=== PATIENT | female | born 1980 | race Caucasian/White ===

== ENCOUNTER 2020-12-20 01:55 | Inpatient (IN) | payer OTHER ==
[~2020-12-20] VITALS: Ht 152.4 cm; Wt 68.0 kg
[~2020-12-20 01:55] MED LIST: CYCLOBENZAPRINE5 MG PO; MOBIC15 MG PO
[2020-12-20 02:43] LABS: RED BLOOD COUNT 5.03 M/UL (4.00-5.10); WHITE BLOOD COUNT 8.6 K/UL (4.5-11.0)
[2020-12-20 03:12] LABS: BUN/CREATININE RATIO 11 (0-10)
--- NOTE | 2020-12-20 09:39 | NUR ---
STATES OK FOR PT TO COME OFF TELEMETRY MONITORING FOR MRI
--- NOTE | 2020-12-20 14:39 | NUR ---
MD ON FLOOR AND REQUEST NEW ORDERS BE PLACED
[2020-12-21 03:39] LABS: RED BLOOD COUNT 4.73 M/UL (4.00-5.10); WHITE BLOOD COUNT 8.2 K/UL (4.5-11.0)
[2020-12-21 04:04] LABS: BUN/CREATININE RATIO 17 (0-10)
[2020-12-21] MEDS ORDERED: PREDNISONE 20 M20 MG PO ×2 (09:02→09:46)
[2020-12-21] MEDS ORDERED: AMLODIPINE BESYL5 MG PO (09:02)
[2020-12-21] MEDS ORDERED: CARVEDILOL12.5 MG PO (09:02)
[2020-12-21] MEDS ORDERED: VALACYCLOVIR500 MG PO (09:02)
[2020-12-21] MEDS ORDERED: ARTIFICIAL TEAR15 M2 EYEBOTH (09:02)
[2020-12-29 10:14] LABS: AMPHETAMINE Positive (.); AMPHETAMINE GC/MS CONF 1714 ng/mL (Cutoff=500); AMPHETAMINES Positive (Cutoff=1000); AMPHETAMINES, URINE See Final Results ng/mL (Cutoff=1000); BARBITURATE Negative ng/mL (Cutoff=200); BENZODIAZEPINES Negative ng/mL (Cutoff=200); CANNABINOID Positive (Cutoff=20); CANNABINOIDS See Final Results ng/mL (Cutoff=20); CARBOXY THC GC/MS CONF 52 ng/mL (Cutoff=10); COCAINE (METABOLITE) Negative ng/mL (Cutoff=300); CREATININE 121.3 mg/dL (20.0-300.0); MEPERIDINE Negative ng/mL (Cutoff=200); METHADONE Negative ng/mL (Cutoff=300); METHAMPHETAMINE Positive (.); METHAMPHETAMINE GC/MS CONF >3000 ng/mL (Cutoff=500); OPIATES Negative ng/mL (Cutoff=300); PHENCYCLIDINE Negative ng/mL (Cutoff=25); PROPOXYPHENE Negative ng/mL (Cutoff=300)
== END 2020-12-21 11:02 | disposition home or self-care (01) | DRG 73 ==
LOC: ER1 01:55 → CDU 04:12 → PROG CARE 04:12
PROVIDERS: Family Medicine; Internal Medicine; ADMIT Internal Medicine
DX: G51.0 Bell's palsy (principal); I63.81 Other cerebral infarction due to occlusion or stenosis of small artery; I16.1 Hypertensive emergency; Z20.822 Contact with and (suspected) exposure to COVID-19; G37.9 Demyelinating disease of central nervous system, unspecified; I16.0 Hypertensive urgency; R29.810 Facial weakness; G83.9 Paralytic syndrome, unspecified; G58.8 Other specified mononeuropathies; G62.9 Polyneuropathy, unspecified; H04.122 Dry eye syndrome of left lacrimal gland; Z87.59 Personal history of other complications of pregnancy, childbirth and the puerperium; Z82.3 Family history of stroke
CPT/HCPCS: 36415; 70450; 70551; 80048; 80053; 80061; 80307; 82550; 82553; 82607; 82746; 83735; 83874; 84439; 84443; 84484; 84550; 84703; 85025; 85027; 92507; 92526; 92610; 93005; 96374; 97161; 97165; 99285; U0002